=== PATIENT | female | born 1985 | race Caucasian/White ===

== ENCOUNTER 2017-05-29 20:40 | Emergency (ER) | payer OTHER ==
[~2017-05-29] VITALS: Ht 165.1 cm; Wt 69.3 kg
--- NOTE | 2017-05-29 20:43 | ED.ADGEN ---
Past History Past Medical History: Constipation Adult General Chief Complaint Chief Complaint " ..I am constipated ... I just had the baby last week... she was six week early..." " I use the glycerin sup. stool soft.. and mom..." .." but still no results..." HPI HPI Patient is a 31 year old female who presents with above hx and complaints constipation after delivery. Patient has tried stool softeners and 1 dose of note mag. Patient states these have not resulted in a adequate stool. Patient states stools but hard. Patient has had a regular diet since her is in ICU at [facility]. Patient is breast feeding. Patient is taking vitamins. Patient has been sore in her pubic area due to sutures after delivery. Patient has not had previous history of constipation. Review of Systems Review of Systems Constitutional: Denies fever or chills [] Eyes: Denies change in visual acuity, redness, or eye pain [] HENT: Denies nasal congestion or sore throat [] Respiratory: Denies cough or shortness of breath [] Cardiovascular: No additional information not addressed in HPI [] GI: Plaints of abdominal pain, and constipation. Patient denies nausea, vomiting , bloody stools or diarrhea [] : Denies dysuria or hematuria [] Musculoskeletal: Denies back pain or joint pain [] Integument: Denies rash or skin lesions [] Neurologic: Denies headache, focal weakness or sensory changes [] Endocrine: Denies polyuria or polydipsia [] All other systems were reviewed and found to be within normal limits, except as documented in this note. Family History Family History Noncontributory Current Medications Current Medications Current Medications Medications (Trade) Dose Ordered Sig/Doris Start Time Stop Time Status Last Admin Dose Admin Glycerin (Sani-Supp Adult) 1 supp 1X ONCE 05/29/17 21:30 05/29/17 21:33 DC 05/29/17 21:43 1 SUPP Magnesium Citrate (Citroma) 296 ml 1X ONCE 05/29/17 21:30 05/29/17 21:33 DC 05/29/17 21:43 296 ML Allergies Allergies Allergies Coded Allergies Type Severity Reaction Last Updated Verified No Known Drug Allergies 05/29/17 No Physical Exam Physical Exam Constitutional: Moderately acute distress, non-toxic appearance. [] HENT: Normocephalic, atraumatic, bilateral external ears normal, oropharynx moist, no oral exudates, nose normal. [] Eyes: PERRLA, EOMI, conjunctiva normal, no discharge. [] Neck: Normal range of motion, no tenderness, supple, no stridor. [] Cardiovascular:Heart rate regular rhythm, no murmur [] Lungs & Thorax: Bilateral breath sounds clear to auscultation [] Abdomen: Bowel sounds normal, soft, lower abdomen tenderness, no masses, no pulsatile masses. [] Patient declined rectal exam at this time. Skin: Warm, dry, no erythema, no rash. [] Back: No tenderness, no CVA tenderness. [] Extremities: No tenderness, no cyanosis, no clubbing, ROM intact, no edema. [] Neurologic: Alert and oriented X 3, normal motor function, normal sensory function, no focal deficits noted. [] Psychologic: Affect anxious, judgement normal, mood normal. [] EKG EKG [] Radiology/Procedures Radiology/Procedures [] Course & Med Decision Making Course & Med Decision Making Pertinent Labs and Imaging studies reviewed. (See chart for details). Patient to use glycerin suppository tonight and one bottle of mag citrate. If this is not effective in relieving her constipation patient will start a course of GoLYTELY. Patient to remain on a clear fluid diet only. Patient to follow-up primary care. Patient return of any concerns. Patient informed expect some cramping with passage of stool. [] Final Impression Final Impression 1. Constipation[] Problems: Dragon Disclaimer Dragon Disclaimer This electronic medical record was generated, in whole or in part, using a voice recognition dictation system. STEPHON MCKEON MD May 29, 2017 20:43
[2017-05-29] MEDS ORDERED: PEG4000S8 PO (21:02)
[2017-05-29] MEDS: GLYCERIN ADULT 1 SUPP.RECT. PR ONE (21:43)
[2017-05-29] MEDS: MAGNESIUM CITRATE 296 ML SOLUTION. PO ONE (21:43)
== END 2017-05-29 21:43 | disposition home or self-care (01) ==
LOC: ER 20:40
DX: O90.89 Other complications of the puerperium, not elsewhere classified (principal); K59.00 Constipation, unspecified
CPT/HCPCS: 99283